=== PATIENT | female | born 1975 | race Native Hawaiian/Other Pacific Islander ===

== ENCOUNTER 2018-09-27 13:50 | Outpatient (CLI) | payer OTHER | END 2018-09-27 13:55 | disposition short-term general hospital (02) | LOC: AMB 13:50 | DX: Z00.8 Encounter for other general examination (principal); R46.89 Other symptoms and signs involving appearance and behavior | CPT/HCPCS: A0425; A0429 ==

== ENCOUNTER 2018-09-27 13:55 | Emergency (ER) | payer OTHER ==
[~2018-09-27] VITALS: Ht 160 cm; Wt 54.4 kg
[2018-09-27 14:16] VITALS: BP 100/62; TEMP 97.9
== END 2018-09-27 15:30 | disposition home or self-care (01) ==
LOC: ED 13:55
DX: F41.9 Anxiety disorder, unspecified (principal)
CPT/HCPCS: 99282; 99283